=== PATIENT | female | born 1975 | race Caucasian/White ===

== ENCOUNTER 2016-09-23 08:58 | Inpatient (IN) ==
--- NOTE | 2016-09-23 12:42 | Internal Med History&Physical ---
Date of Encounter: 09/23/16 Time of Encounter: 12:41 Assessment and Plan (1) Fibula fracture Current visit: Yes Status: Acute Orthopedics have been consulted Patient is low risk for surgery Pain control DVT prophylaxis Obtain U.tox mechanism of fall is suspicious for violence and or influence by illicit substances Qualifiers: Encounter type: initial encounter Fibula location: proximal Fracture type : closed Laterality: left Qualified Code(s): S82.832A - Other fracture of upper and lower end of left fibula, initial encounter for closed fracture (2) Ulna styloid fracture, closed Current visit: Yes Status: Acute As above Qualifiers: Encounter type: initial encounter Fracture alignment: nondisplaced Laterality: right Qualified Code(s): S52.614A - Nondisplaced fracture of right ulna styloid process, initial encounter for closed fracture (3) Tibial plateau fracture, left Current visit: Yes Status: Acute As above Qualifiers: Encounter type: initial encounter Fracture type: closed Qualified Code(s) : S82.142A - Displaced bicondylar fracture of left tibia, initial encounter for closed fracture (4) Tobacco abuse Current visit: Yes Status: Acute 3 minutes spent on tobacco cessation counseling. Patient refuses to nicotine replacement therapy at this time. Internal Medicine - H&P: HPI Chief complaint: Fall Admitted From: Home Plans for Post Hospital Care: Home History of present illness: Ms. Benedict is a 40 year old female with no past medical history except for crepitus. Patient is seen and evaluated at the bedside. Patient denies illicit drug use, or alcohol abuse. Patient reports having the porch about 10 feet high without railings, and she fell from the edge of touched the flow last night at 10 PM. She denies being under the influence of drugs or alcohol at the time of the incident. She denies any formal domestic violence or abuse at home. She presented to the ER at [place], and imaging revealed a right communited / impacted ulnar styloid fracture and a left tibia and fibula fracture hence patient was transferred here for surgical intervention. She denies any have having any surgery in the past, she had laparoscopic tubal ligation without any adverse effects of anesthesia in the past. She denies family history of any anesthesia complications. She smokes 1-1/2 packs a day of cigarettes. She reports being completely functional without any shortness of breath at her baseline. She denies chest pain, leg swelling or easy fatigability. Labs done from the referral center essentially unremarkable CBC, chemistry, coagulation panel, urine analysis. Past Med Surg Social Fam HX - Past Medical History Medical history: no medical history Psychiatric history: anxiety - Social History Smoking Status: Current every day smoker Packs per day: 0.5 Smokeless Tobacco Status: No Alcohol use: none Drug use: none - Family History Mother Living Status: Still Living Hx Family Cardiac Disorders: Yes Hx Family Endocrine Disorder: Yes (DM) Father Living Status: Still Living Hx Family Endocrine Disorder: Yes (DM) Brother Hx Family Endocrine Disorder: Yes (DM) Internal Medicine - H&P: Meds No Known Home Drugs 09/23/16 [History] Allergies No Known Allergies Allergy (Verified 09/23/16 07:24) All Systems PM: A 10-system review of systems was performed and is negative for pertinent findings except as documented above in the HPI. - Constitutional Constitutional: no chills, no fever(s), no night sweats - EENT Eyes: no change in vision, no discharge, no pain, no photophobia Ears: no ear discharge, no ear pain, no tinnitus Nose, mouth and throat: no dysphagia, no nasal discharge, no neck pain, no sore throat - Cardiovascular Cardiovascular ROS IM: no chest pain, no diaphoresis, no dyspnea, no lightheadedness, no palpitations, no syncope - Respiratory Respiratory: no cough, no dyspnea, no wheezing, no excessive phlegm production - Gastrointestinal Gastrointestinal: no abdominal pain, no diarrhea, no hematemesis, no hematochezia, no melena, no nausea, no vomiting - Genitourinary Genitourinary: no change in urinary stream, no dysuria, no flank pain, no hematuria - Musculoskeletal Musculoskeletal ROS IM: as per HPI - Integumentary Integumentary IM: as per HPI - Neurological Neurological ROS: no confusion, no convulsions, no focal weakness, no numbness, no tingling, no tremor(s) - Hematologic/Lymphatic Hematologic/Lymphatic: no easy bruising - Constitutional Vitals: Temp Pulse Resp BP Pulse Ox 97.7 F 81 18 139/96 96 09/23/16 11:40 09/23/16 11:40 09/23/16 11:40 09/23/16 11:40 09/23/16 11:40 General appearance: Present: mild distress, A&O X 3, pleasant - Head Head exam: Present: atraumatic, normocephalic - Eye Eye exam: Present: PERRL, conjuntiva pink, sclera anicteric Pupils: Present: PERRL - Neck Neck exam general surgery: Present: supple, trachea midline. Absent: lymphadenopathy - Respiratory Respiratory exam: Present: CTAB. Absent: accessory muscle use, rales, rhonchi, wheezes - Cardiovascular Cardiovascular exam: Present: RRR, +S1, +S2. Absent: diastolic murmur, gallop, rubs, systolic murmur - GI/Abdominal GI/Abdominal exam: Present: normal bowel sounds, soft, no peritoneal signs. Absent: distended, tenderness - Extremities Exam Extremities exam: Present: warm, radial pulses palpable and symetrical. Absent : calf tenderness, cyanotic, pedal edema Additional comments: R arm in cast, well perfused, normal capillary refill at the finger tips Left leg in cast, good capillary refill, patient is able to wriggle her toes - Neurological Exam Neurological exam: Present: alert, CN II-XII intact, oriented X3, no focal deficits. Absent: pronater drift, facial droop, speech deficit - Skin Skin exam: Present: dry, intact
[2016-09-23] MEDS ORDERED: Naloxone 0.4 MG/ML INJ IVP PRN (12:54)
[2016-09-23] MEDS ORDERED: Acetaminophen 325 MG TABLET PO PRN (12:54)
[2016-09-23] MEDS ORDERED: Ondansetron 4 MG/2 ML VIAL IVP PRN (12:54)
[2016-09-23] MEDS: *HR* Morphine 2 MG/ML SYRINGE IVP PRN ×3 (13:27→21:51)
[2016-09-23] MEDS: 0.9 % Sodium Chloride 1,000 ML IVC SCH (13:29)
[2016-09-23] MEDS: *HR* HYDROcodone/Acet 5/325 mg TABLET PO PRN ×3 (15:27→23:52)
--- NOTE | 2016-09-23 16:24 | Orthopedic Consult Note ---
Date of Encounter: 09/23/16 Time of Encounter: 16:22 Assessment and Plan (1) Tibial plateau fracture, left Current Visit: Yes Status: Acute Discussed with the patient that the fracture is displaced extending into the joint. We will obtain a CT scan. I discussed that Dr. Bernal will perform an open reduction internal fixation of the proximal tibia and Sunday. The procedure, expected rehabilitation were discussed. The risks, benefits alternatives were discussed. Informed consent was obtained. Qualifiers: Encounter type: initial encounter Fracture type: closed Qualified Code(s) : S82.142A - Displaced bicondylar fracture of left tibia, initial encounter for closed fracture (2) Distal radius fracture, right Current Visit: Yes Status: Acute The patient also has a right distal radius intra-articular fracture that is displaced. She scheduled for an open reduction internal fixation of the distal radius tomorrow. The surgical details along with the expected rehabilitation was discussed with the patient. The risks, benefits and alternatives were discussed. Informed consent was obtained. I discussed with the patient once plates in position and we can get her into a cast she will be able to bear weight on the forearm with a platform walker. Qualifiers: Encounter type: initial encounter Fracture type: closed Fracture morphology: other intra-articular Qualified Code(s): S52.571A - Other intraarticular fracture of lower end of right radius, initial encounter for closed fracture History of Present Illness Chief complaint: Right wrist and left knee fractures HPI: Ms. Benedict is a 40 year old [id number] female status post a fall last night sustaining a right wrist distal radius intra-articular fracture and a left knee displaced tibial plateau fracture. The patient was intoxicated last night and fell off a porch it that was intimately left area with no railing. Apparently the patient passed out and woke up this morning with significant pain , she was seen at the [facility] later this morning. The patient denies any chest pain or shortness of breath. She has normal balance normally and does not drink excessively typically. Past Med Surg Social Fam HX - Past Medical History Medical history: no medical history Psychiatric history: anxiety - Social History Smoking Status: Current every day smoker Packs per day: 0.5 Smokeless Tobacco Status: No Alcohol use: none Drug use: none - Family History Mother Living Status: Still Living Hx Family Cardiac Disorders: Yes Hx Family Endocrine Disorder: Yes (DM) Father Living Status: Still Living Hx Family Endocrine Disorder: Yes (DM) Brother Hx Family Endocrine Disorder: Yes (DM) Medications and Allergies No Known Home Drugs 09/23/16 [History] Allergies No Known Allergies Allergy (Verified 09/23/16 07:24) All Systems Reviewed: A 10-system review of systems was performed and is negative for pertinent findings except as documented above in the HPI. Physical Exam - Constitutional Vitals: Temp Pulse Resp BP Pulse Ox 98.6 F 80 18 143/95 98 09/23/16 14:52 09/23/16 14:52 09/23/16 14:52 09/23/16 14:52 09/23/16 14:52 General appearance IM: mild distress, A&O X 3 Exam: Head normocephalic atraumatic Neck supple and nontender Right shoulder nontender, sugar tong splint and forearm, able to move fingers and warm to touch Left upper extremity has no swelling and no tenderness of the joint along bone, mild bruising on the posterior arm Right lower extremity has no bruising and no tenderness over the joints along bones, neurovascular intact Left lower extremity is maynor long posterior splint, she is alert move her toes are warm to touch, sensation intact Results - Labs Labs: All other labs normal. - Diagnostic results Wrist/Hand CT: image reviewed (Right distal radius intra-articular fracture, displaced) Knee x-ray: image reviewed (Left tibial plateau fracture, displaced) Consult Discharge Plan - Plan Referrals: Johny Greene MD [Primary Care Provider] -
[2016-09-23 18:21] LABS: Amphetamine Screen,Urine Positive ng/mL (Cutoff=1000); Barbiturate Screen,Urine Negative ng/mL (Cutoff=200); Benzodiazepines Screen,Urine Negative ng/mL (Cutoff=200); Cannabinoid Screen,Urine Positive ng/mL (Cutoff = 50); Cocaine Screen,Urine Negative ng/mL (Cutoff= 300); Opiate Screen,Urine Positive ng/mL (Cutoff=300); Phencyclidine Screen,Urine Negative ng/mL (Cutoff=25)
[2016-09-24] MEDS: *HR* Morphine 2 MG/ML SYRINGE IVP PRN ×4 (01:50→15:06)
[2016-09-24] MEDS: *HR* HYDROcodone/Acet 5/325 mg TABLET PO PRN ×5 (04:24→23:25)
[2016-09-24] MEDS ORDERED: *HR* Enoxaparin 40 MG/0.4 ML SYRINGE SQ SCH (06:00)
[2016-09-24 06:15] LABS: Hematocrit 39.5 % (35.3-44.9); Hemoglobin 13.3 g/dL (11.5-15.4); Immature Platelets 5.2 % (1.1-6.1); Mean Corpuscular HGB Conc 33.7 g/dL (31.6-35.5); Mean Corpuscular Hemoglobin 31.4 pg (28.0-33.3); Mean Corpuscular Volume 93.2 fL (83.0-100.0); Mean Platelet Volume 10.1 fL (9.4-12.4); Red Blood Count 4.24 M/mcL (3.82-4.97)
[2016-09-24 06:26] LABS: BUN/Creatinine Ratio 6 (6-26); Calcium 8.7 mg/dL (8.6-10.8); Carbon Dioxide 20 mEq/L (19-29); Chloride 107 mEq/L (98-109); Glucose 97 mg/dL (70-99); Osmolality,Calculated 279 (280-300); Potassium 3.4 mEq/L (3.5-4.5); Sodium 136 mEq/L (136-145); eGFR For African Americans > 60 (> 60); eGFR For Non-African Americans > 60 (> 60)
[2016-09-24 06:30] LABS: Blood Urea Nitrogen 4 mg/dL (7-20)
[2016-09-24] MEDS ORDERED: amLODIPine 5 MG TABLET PO SCH (09:00)
--- NOTE | 2016-09-24 09:55 | Internal Med Progress Note ---
Date of Encounter: 09/24/16 Time of Encounter: 09:10 - Assessment and plan (1) Fibula fracture Current Visit: Yes Status: Acute Assessment and plan: Continue pain control For surgery a.m DVT prophylaxis Qualifiers: Encounter type: initial encounter Fibula location: proximal Fracture type : closed Laterality: left Qualified Code(s): S82.832A - Other fracture of upper and lower end of left fibula, initial encounter for closed fracture (2) Ulna styloid fracture, closed Current Visit: Yes Status: Acute Assessment and plan: Continue pain control For surgery today Qualifiers: Encounter type: initial encounter Fracture alignment: nondisplaced Laterality: right Qualified Code(s): S52.614A - Nondisplaced fracture of right ulna styloid process, initial encounter for closed fracture (3) Tibial plateau fracture, left Current Visit: Yes Status: Inactive Qualifiers: Encounter type: initial encounter Fracture type: closed Qualified Code(s) : S82.142A - Displaced bicondylar fracture of left tibia, initial encounter for closed fracture (4) Tobacco abuse Current Visit: Yes Status: Acute Assessment and plan: Declines NRT, counselled on cessation (5) HTN (hypertension) Current Visit: Yes Status: Suspected Assessment and plan: suspected Low dose norvasc started, titrate prn Qualifiers: Hypertension type: essential hypertension Qualified Code(s): I10 - Essential (primary) hypertension - Subjective Interval history: Seen and evaluated No new complains Receiving IV morphine roundd the clock for severe pain Shes for ulnar styloid fracture this morning Noted elevated BP, patient denies hx of same - Constitutional Vitals: Temp Pulse Resp BP Pulse Ox 98.2 F 87 18 154/78 98 09/24/16 06:44 09/24/16 06:44 09/24/16 06:44 09/24/16 06:44 09/24/16 06:44 General appearance: Present: A&O X 3, pleasant, no acute distress - Head Head exam: Present: atraumatic, normocephalic - Eye Eye exam: Present: PERRL, conjuntiva pink, sclera anicteric Pupils: Present: PERRL - Neck Neck exam general surgery: Present: supple, trachea midline. Absent: lymphadenopathy - Respiratory Respiratory exam: Present: CTAB. Absent: accessory muscle use, rales, rhonchi, wheezes - Cardiovascular Cardiovascular exam: Present: RRR, +S1, +S2. Absent: diastolic murmur, gallop, rubs, systolic murmur - GI/Abdominal GI/Abdominal exam: Present: normal bowel sounds, soft, no peritoneal signs. Absent: distended, tenderness - Extremities Exam Extremities exam: Present: warm, radial pulses palpable and symetrical. Absent : calf tenderness, cyanotic, pedal edema Additional comments: R arm and L leg in cast, neurovascularly intact - Neurological Exam Neurological exam: Present: alert, CN II-XII intact, oriented X3, no focal deficits. Absent: pronater drift, facial droop, speech deficit - Skin Skin exam: Present: dry, intact Internal Medicine: Result - Labs CBC & Chem 7: 09/24/16 06:07 09/24/16 06:07 Labs: Short CBC 09/24/16 Range/Units 06:07 WBC 10.6 (4.3-11.1) K/mcL Hgb 13.3 (11.5-15.4) g/dL Hct 39.5 (35.3-44.9) % Plt Count 260 (140-400) K/mcL BMP 09/24/16 06:07 Sodium 136 Potassium 3.4 L Chloride 107 Carbon Dioxide 20 BUN 4 L Creatinine 0.69 Glucose 97 Calcium 8.7 - Impressions Impressions Knee CT 09/23/16 15:23 IMPRESSION: 1. Acute comminuted fracture of the medial and lateral tibial plateau. 4 mm depression in the anterior aspect of the medial tibial plateau. 2. Large lipohemarthrosis. D/ / Panchito Bernal MD / Panchito Bernal MD Interpreting Provider: Panchito Bernal MD - VTE Documentation of Mechanical Device: Venous foot pump, device Consult Discharge Plan - Plan Referrals: Johny Greene MD [Primary Care Provider] -
[2016-09-24] MEDS: 0.9 % Sodium Chloride 1,000 ML IVC SCH ×2 (16:29→22:25)
--- NOTE | 2016-09-24 17:12 | Anesthesia Evaluation PreOp ---
Date of Encounter: 09/24/16 Time of Encounter: 18:54 - Past History Planned Operation: ORIF R wrist Cardiac History: HTN (started on norvasc this hospitalization) Pulmonary History: Smoker MANAGER PRINTING History: Denies Any Significant HX Other Medical History: Denies Any Significant HX Anesthesia History: No Prior Anesthetic Complications, Past Anesthesia (tubal ligation) Alcohol Use: none Drug use: none Medications and Allergies No Known Home Drugs 09/23/16 [History] Allergies No Known Allergies Allergy (Verified 09/23/16 07:24) - Meds/Allergy Pre-op Review Medications Reviewed: Yes Allergies Reviewed: Yes Beta Blockers on Current Med List: No Anesthesia Results - Labs 09/24/16 06:07 09/24/16 06:07 Anesthesia Exam Last Vital Signs Temp 98.3 F 09/24/16 10:53 Pulse 94 09/24/16 10:53 Resp 16 09/24/16 10:53 BP 148/76 09/24/16 10:53 Pulse Ox 98 09/24/16 10:53 Weight: 70 kg NPO (# of Hours): >> 8 hrs - HEENT Pupil (Motor): Pupils equal, EOMI Mallampati: II Teeth: Edentulous Denture Type: Upper: Complete, Lower: Complete - MANAGER PRINTING LOC: Oriented MANAGER [employer]ING Motor: Normal RUE, Normal LUE, Normal RLE, Normal LLE, Normal Face - Cardiac Rhythm: Regular Murmur: None - Pulmonary Breath Sounds: bilateral Clear Respiratory Effort: Symmetrical Anesthesia Assess/Plan ASA Score: 2 Modified Gerson Scale for Level of Consciousness: Cooperative, oriented, and tranquil Anesthetic Plan: General Monitoring Plan: Standard Monitors Recovery Plan: PACU
[2016-09-24] MEDS ORDERED: *HR* FentaNYL (PF) 100 MCG/2 ML VIAL ONE (17:48)
[2016-09-24] MEDS ORDERED: *HR* Midazolam HCl 2 MG/2 ML VIAL ONE (17:48)
[2016-09-24] MEDS ORDERED: Lidocaine -MPF 2% 2 ML VIAL ONE (17:48)
[2016-09-24] MEDS ORDERED: *HR* Propofol 200 MG/20 ML VIAL IVP ONE (17:48)
[2016-09-24] MEDS ORDERED: *HR* Succinylcholine 200 MG/10 ML VIAL IVP ONE (17:51)
[2016-09-24] MEDS ORDERED: Acetaminophen IV 1,000 MG/100 ML INFUS..BTL ONE (19:20)
[2016-09-24] MEDS ORDERED: Famotidine 20 MG/2 ML VIAL ONE (19:20)
[2016-09-24] MEDS ORDERED: *HR* HYDROmorphone 2 MG/ML SYRINGE ONE (19:53)
[2016-09-24] MEDS ORDERED: Dexamethasone 4 MG/ML VIAL ONE (20:27)
[2016-09-24] MEDS ORDERED: Ondansetron 4 MG/2 ML VIAL ONE (20:27)
[2016-09-24] MEDS ORDERED: *HR* Labetalol 100 MG/20 ML MDV IVP PRN (21:42)
[2016-09-24] MEDS ORDERED: *HR* Promethazine 25 MG/ML VIAL IVP PRN (21:42)
[2016-09-24] MEDS ORDERED: *HR* HYDROmorphone (PF) 1 MG/ML SYRINGE IVP PRN (21:42)
--- NOTE | 2016-09-24 22:03 | Operative Note ---
Date of procedure: 09/24/16 Pre-op diagnosis: Right distal radius intra-articular fracture, 3+ fragments Post-op diagnosis: same Procedure: Right wrist open reduction internal fixation of distal radius Implants: Doroteo Variax Complications: None Anesthesia: GETA Surgeon: Dalton Morales Estimated blood loss (cc): 3 Tourniquet Time (Minutes): 68 Specimen: none Condition: stable Disposition: PACU Procedure in Detail: The patient received IV antibiotics in the holding area and also underwent an axillary block by the anesthesia department. The patient was brought into the operating room and placed on the OR table in supine position with the affected upper extremity in a hand table. The patient underwent general anesthesia. A tourniquet was placed on the arm close axilla and the upper extremity was then prepped and draped in usual sterile fashion. A timeout was performed. The extremity was then elevated, exsanguinated with an Kwesi wrap and the tourniquet was raised to a pressure of 250 mmHg. A 6 cm longitudinal incision was made over the volar radial aspect of the wrist , directly over the FCR tendon ending at the distal wrist flexion crease. The FCR sheath was split down the midline, the tendon was retracted over medially and the base of the sheath was also split the midline. The deep fascia and the FPL muscle/tendon was also retraction medially exposing the pronator quadratus. This was then elevated off in an L-shaped manner subperiosteally, exposing the fracture site. The distal fracture fragments were mobilized as a unit, and reduced with the use of a freer elevator, and provisionally pinned in place using a 0.062 K wire driven down from the tip of the radial styloid into the proximal shaft. A lamina larry car operator was also used to restore the alignment of the radial shaft. Next a 4 hole right sided medium plate was applied to the volar surface and secured with a bone screw through the slotted hole. Once we had appropriate position plate, it was further secured with a locking screw in hole #4 in the metaphyseal bone. The distal fragment was held against the plate restoring the volar tilt, and a locking screw was placed in a distal central hole maintaining the alignment. The remaining screw holes were then filled with locking screws in standard technique using variable angle as necessary.. We checked screw position with live fluoroscopy. The remaining holes in the shaft of the plate were then filled with locking screws in standard technique. The K wire was removed. Final fluoroscopy shots were taken and saved; checking in AP, lateral, facet views, and a 45 degree supination view making sure the screws were not within the joint. Once satisfactory, the wound was irrigated with normal saline and the pronator quadratus was tacked back down in place with 3-0 Vicryl [id number] sutures. The tourniquet was deflated, once again irrigating the wound and obtaining hemostasis with the bipolar electrocautery. The skin incision was closed with 5-0 nylon mattress and simple sutures. Sterile dressings were applied and the patient placed into a sugar tong splint. Patient was extubated and taken to the recovery room in stable condition. The patient will be seen at postoperative week #1 for dressing changes and placed into a [place] cast.
[2016-09-24] MEDS ORDERED: Naloxone 0.4 MG/ML INJ IVP PRN (22:10)
[2016-09-24] MEDS ORDERED: Acetaminophen 325 MG TABLET PO PRN (22:10)
[2016-09-24] MEDS ORDERED: Ondansetron 4 MG/2 ML VIAL IVP PRN (22:10)
--- NOTE | 2016-09-24 23:42 | Anesthesia Evaluation Post Op ---
Date of Encounter: 09/24/16 Time of Encounter: 22:00 - Vital Signs Vital Signs: Vital Signs/O2 Sat/Glucose, Most Current Temp Pulse Resp BP Pulse Ox 09/24/16 21:56 98.7 F 91 16 129/92 99 09/24/16 21:46 79 16 131/91 96 09/24/16 21:36 83 16 143/106 98 09/24/16 21:26 97.1 F L 97 16 151/92 100 - Lungs Lungs: Clear Ascult./Percussion - Airway Airway: Non-obstructed - Cardiovascular Regular Rate - Mental Status Mental Status: Alert & Oriented, Answers Appropriately - Pain Pain Scale: 0 Pain Scale used: Numeric (1 - 10) - Nausea Vomiting Nausea Vomiting: Not Present - Hydration Hydration: Able to void - Discharge PostOp Status: Transfer Patient to floor Anes Supervising Prov Stmt: Pt seen/evaluated, R&B discussed, questions answered and consent obtained.Nicole Lovett MD
[2016-09-25] MEDS: *HR* Morphine 2 MG/ML SYRINGE IVP PRN ×5 (00:43→16:36)
[2016-09-25] MEDS: ceFAZolin 2,000 MG in D5% in Water 100 ML IVPB SCH ×3 (03:30→23:38)
[2016-09-25] MEDS: *HR* HYDROcodone/Acet 5/325 mg TABLET PO PRN ×3 (03:30→11:39)
--- NOTE | 2016-09-25 06:44 | Orthopedics Progress Note ---
Date of Encounter: 09/25/16 Time of Encounter: 06:42 Subjective Interval history: Patient status post fall off a porch with right wrist fracture left proximal tibia fracture. Patient underwent open reduction internal fixation of right wrist last night. Patient with a significantly comminuted displaced fracture of the left tibial plateau. Physical exam Alert and oriented 3 left lower extremity In splint slightly flexed Neurovascularly intact X-rays reviewed show severely comminuted displaced fracture proximal tibia medial and lateral plateau Recommendation open reduction internal fixation, risks and benefits of surgery were discussed as well as severity of injury significant probability that posterior back arthritis will be a source of discomfort in the future requiring additional surgery. Goal of the surgery to try and restore normal anatomy but at the same time preserve bone. Objective Vital signs: Vital Signs Temp Pulse Resp BP Pulse Ox 09/25/16 04:30 97.9 F 91 14 125/71 95 09/25/16 01:15 98.4 F 91 14 116/79 94 09/25/16 00:15 97.5 F L 94 14 136/80 95 09/24/16 23:15 97.4 F L 72 14 125/85 92 09/24/16 22:45 97.6 F 90 16 141/90 93 09/24/16 22:37 97.7 F 91 16 133/90 93 09/24/16 21:56 98.7 F 91 16 129/92 99 09/24/16 21:46 79 16 131/91 96 09/24/16 21:36 83 16 143/106 98 09/24/16 21:26 97.1 F L 97 16 151/92 100 09/24/16 10:53 98.3 F 94 16 148/76 98 09/24/16 06:44 98.2 F 87 18 154/78 98 Intake and Output 09/24/16 09/24/16 09/25/16 15:59 23:59 07:59 Intake Total 1000 / 1000 100 / 100 Output Total 700 / 700 328 / 328 1400 / 1400 Balance -700 / -700 672 / 672 -1300 / -1300 Intake: IV Fluids 1000 / 1000 100 / 100 0.9 % Sodium Chloride 1, 1000 / 1000 000 ML @ 50 mls/hr IVC . Q20H [facility] Rx#:[id number] Ancef 2,000 MG In 100 / 100 Dextrose 5% 100 ML @ 200 mls/hr IVPB Q8H [facility] Rx#: [id number] Output: Urine 700 / 700 325 / 325 1400 / 1400 Estimated Blood Loss 3 / 3 - Labs CBC & BMP: 09/24/16 06:07 09/24/16 06:07 Labs: Abnormal lab results RDW 15.0 % (11.5-14.5) H 09/24/16 06:07 Potassium 3.4 mEq/L (3.5-4.5) L 09/24/16 06:07 BUN 4 mg/dL (7-20) L 09/24/16 06:07 Calculated Osmolality 279 (280-300) L 09/24/16 06:07 Urine Opiates Screen Positive ng/mL (Kyczdh=393) H 09/23/16 17:40 Ur Amphetamines Screen Positive ng/mL (Lsbfoq=9457) H 09/23/16 17:40 U Marijuana (THC) Screen Positive ng/mL (Cutoff = 50) H 09/23/16 17:40 - VTE Documentation of Mechanical Device: Venous foot pump, device Consult Discharge Plan - Plan Referrals: Johny Greene MD [Primary Care Provider] -
[2016-09-25] MEDS ORDERED: amLODIPine 5 MG TABLET PO SCH (09:00)
--- NOTE | 2016-09-25 09:40 | Internal Med Progress Note ---
Date of Encounter: 09/25/16 Time of Encounter: 09:38 - Assessment and plan (1) Fibula fracture Current Visit: Yes Status: Acute Assessment and plan: Continue pain control For surgery today DVT prophylaxis Qualifiers: Encounter type: initial encounter Fibula location: proximal Fracture type : closed Laterality: left Qualified Code(s): S82.832A - Other fracture of upper and lower end of left fibula, initial encounter for closed fracture (2) Ulna styloid fracture, closed Current Visit: Yes Status: Acute Assessment and plan: Continue pain control POD 1 Mgt per ortho Qualifiers: Encounter type: initial encounter Fracture alignment: nondisplaced Laterality: right Qualified Code(s): S52.614A - Nondisplaced fracture of right ulna styloid process, initial encounter for closed fracture (3) Tibial plateau fracture, left Current Visit: Yes Status: Acute Assessment and plan: Management per ortho For surgery today Qualifiers: Encounter type: initial encounter Fracture type: closed Qualified Code(s) : S82.142A - Displaced bicondylar fracture of left tibia, initial encounter for closed fracture (4) Tobacco abuse Current Visit: Yes Status: Acute Assessment and plan: Declines NRT, counselled on cessation (5) HTN (hypertension) Current Visit: Yes Status: Suspected Assessment and plan: suspected Continue Norvasc 2.5mg daily, titrate prn Qualifiers: Hypertension type: essential hypertension Qualified Code(s): I10 - Essential (primary) hypertension - Subjective Interval history: Seen and evaluated No new complains Receiving IV morphine round the clock for severe pain, and norco and PCM POD1 R ulnar styloid ORIF For Left tibial plateau fracture repair today - Constitutional Vitals: Temp Pulse Resp BP Pulse Ox 98.3 F 113 22 163/99 97 09/25/16 06:56 09/25/16 06:56 09/25/16 06:56 09/25/16 06:56 09/25/16 06:56 General appearance: Present: A&O X 3, pleasant, no acute distress - Head Head exam: Present: atraumatic, normocephalic - Eye Eye exam: Present: PERRL, conjuntiva pink, sclera anicteric Pupils: Present: PERRL - Neck Neck exam general surgery: Present: supple, trachea midline. Absent: lymphadenopathy - Respiratory Respiratory exam: Present: CTAB. Absent: accessory muscle use, rales, rhonchi, wheezes - Cardiovascular Cardiovascular exam: Present: RRR, +S1, +S2. Absent: diastolic murmur, gallop, rubs, systolic murmur - GI/Abdominal GI/Abdominal exam: Present: normal bowel sounds, soft, no peritoneal signs. Absent: distended, tenderness - Extremities Exam Extremities exam: Present: warm, radial pulses palpable and symetrical. Absent : calf tenderness, cyanotic, pedal edema Additional comments: R hand arm in cast, neurovcularly intact, L leg in cast, neurovascularly intact - Neurological Exam Neurological exam: Present: alert, CN II-XII intact, oriented X3, no focal deficits. Absent: pronater drift, facial droop, speech deficit - Skin Skin exam: Present: dry, intact Internal Medicine: Result - Labs CBC & Chem 7: 09/24/16 06:07 09/24/16 06:07 - Impressions Impressions Fluoroscopy 09/24/16 17:58 IMPRESSION: Intraprocedural fluoroscopic spot images as above. See separate procedure report for more information. D/ / Hai Edge MD / Hai dEge MD Interpreting Provider: Hai Edge MD Wrist X-Ray 09/24/16 17:58 IMPRESSION: Intraprocedural fluoroscopic spot images as above. See separate procedure report for more information. D/ / Hai Edge MD / Hai Edge MD Interpreting Provider: Hai Edge MD - VTE Documentation of Mechanical Device: Venous foot pump, device Consult Discharge Plan - Plan Referrals: Johny Greene MD [Primary Care Provider] -
--- NOTE | 2016-09-25 11:06 | Anesthesia Evaluation PreOp ---
Date of Encounter: 09/25/16 Time of Encounter: 11:04 - Past History Planned Operation: L prox tibia orif Cardiac History: HTN Pulmonary History: Smoker SKY DIVER History: Denies Any Significant HX Other Medical History: Denies Any Significant HX Anesthesia History: No Prior Anesthetic Complications, Past Anesthesia (btl, orif r wrist) Alcohol Use: none Drug use: none Medications and Allergies No Known Home Drugs 09/23/16 [History] Allergies No Known Allergies Allergy (Verified 09/23/16 07:24) - Meds/Allergy Pre-op Review Medications Reviewed: Yes Allergies Reviewed: Yes Beta Blockers on Current Med List: No Anesthesia Results - Labs 09/24/16 06:07 09/24/16 06:07 Anesthesia Exam Height: 1.55 Weight: 70 NPO (# of Hours): >8 - HEENT Pupil (Motor): Pupils equal, EOMI Mallampati: II Denture Type: Upper: Complete, Lower: Complete Oral Opening: Greater than 3 - SKY DIVER LOC: Oriented SKY DIVER Motor: Normal RUE, Normal LUE, Normal RLE, Normal LLE, Normal Face SKY DIVER Sensory: Normal: RUE, LUE, RLE, LLE, Face - Cardiac Rhythm: Regular Murmur: None - Pulmonary Breath Sounds: bilateral Clear Respiratory Effort: Symmetrical Anesthesia Assess/Plan ASA Score: 2 Modified Grinnell Scale for Level of Consciousness: Cooperative, oriented, and tranquil Anesthetic Plan: General Monitoring Plan: Standard Monitors Recovery Plan: PACU
[2016-09-25] MEDS ORDERED: Ringers Solution, Lactated 1,000 ML IVC SCH (11:15)
[2016-09-25] MEDS ORDERED: Lidocaine -MPF 2% 2 ML VIAL ONE (17:49)
[2016-09-25] MEDS ORDERED: Ondansetron 4 MG/2 ML VIAL ONE (17:49)
[2016-09-25] MEDS ORDERED: *HR* Propofol 200 MG/20 ML VIAL IVP ONE (17:49)
[2016-09-25] MEDS ORDERED: *HR* FentaNYL (PF) 100 MCG/2 ML VIAL ONE (17:49)
[2016-09-25] MEDS ORDERED: *HR* Midazolam HCl 2 MG/2 ML VIAL ONE (17:49)
[2016-09-25] MEDS ORDERED: *HR* Succinylcholine 200 MG/10 ML VIAL IVP ONE (17:49)
[2016-09-25] MEDS ORDERED: *HR* HYDROmorphone 2 MG/ML SYRINGE ONE (18:22)
[2016-09-25] MEDS ORDERED: Ondansetron 4 MG/2 ML VIAL IVP PRN ×2 (18:45→20:51)
[2016-09-25] MEDS ORDERED: *HR* Promethazine 25 MG/ML VIAL IVP PRN (18:45)
--- NOTE | 2016-09-25 19:01 | Orthopedic Operative Note ---
Date of procedure: 09/25/16 Pre-op diagnosis: Displaced comminuted fracture left bicondylar tibial plateau Post-op diagnosis: same Procedure: Procedure: Open reduction internal fixation left tibial plateau bicondylar Estimated blood loss: 200 mL Hardware Synthes 4-hole periarticular left lateral plate 4 5.0 cannulated locking screws 1 5.0 locking screw Procedure: Patient brought to the operating placed on the operating table. After general anesthesia was administered the well leg was placed in the well leg garcia the operative leg was placed in the legholder. The operative leg was prepped and draped in sterile surgical fashion, patient received IV antibiotics prior to skin incision. Utilizing fluoroscopic assistance the fracture was identified. A curved incision was made over the anterolateral aspect of the proximal tibia. Incision made through skin and subcutaneous tissue hemostasis was obtained with Bovie cautery. The fascia was incised along the anterolateral compartment. The muscle was elevated up bluntly off the lateral tibia. The fracture site was exposed. Utilizing fluoroscopic assistance the depressed fragment was identified and elevated with a bone tamp. Position of the fragment in the AP and lateral planes was found to be acceptable with fluoroscopic assistance. A Synthes 4- hole particular 4.5 plate was approximated to the anterolateral surface. It was fixed distally in compression with a 4.5 cortical screw proximally with 3 5.0 cannulated locking screws over guide pins. The position of the hardware as well as fracture reduction found acceptable in the AP and lateral planes. A fourth kickstand 5.0 cannulated screws placed under fluoroscopic assistance. the 4.5 compression screw was switched out for a 5.0 locking screw. Wound was irrigated fascia was closed with a running #1 PDS suture subcutaneous case tissue to close 0 PDS suture skin was closed with skin kayleigh sterile dressing postoperative brace extubated transferred to recovery in stable condition. Anesthesia: GETA Surgeon: Tushar Bernal Clinical Registered Nurse: Danette Hunter Condition: stable Disposition: PACU
[2016-09-25] MEDS: *HR* HYDROmorphone (PF) 1 MG/ML SYRINGE IVP PRN ×7 (19:23→23:37)
[2016-09-25] MEDS ORDERED: Gabapentin 300 MG CAPSULE PO STA (19:49)
[2016-09-25] MEDS ORDERED: *HR* Labetalol 20 MG/4 ML SYRINGE IVP PRN (19:50)
[2016-09-25] MEDS ORDERED: cloNIDine HCl 0.1 MG TABLET PO ONE (19:51)
[2016-09-25] MEDS ORDERED: *HR* HYDROmorphone (PF) 1 MG/ML SYRINGE ONE (19:55)
[2016-09-25] MEDS ORDERED: Dexamethasone 4 MG/ML VIAL IVP PRN (20:10)
[2016-09-25] MEDS ORDERED: Ketorolac 30 MG/ML VIAL IVP ONE (20:10)
[2016-09-25 20:19] LABS: Hematocrit 37.6 % (35.3-44.9); Hemoglobin 12.1 g/dL (11.5-15.4)
[2016-09-25] MEDS ORDERED: Temazepam 15 MG CAPSULE PO PRN (20:51)
[2016-09-25] MEDS ORDERED: Sennosides 8.6 MG TABLET PO PRN (20:51)
[2016-09-25] MEDS ORDERED: Naloxone 0.4 MG/ML INJ IVP PRN ×2 (20:51)
[2016-09-25] MEDS ORDERED: MOM Conc 10 ML UD.LIQ PO PRN (20:51)
--- NOTE | 2016-09-25 20:55 | Anesthesia Evaluation Post Op ---
Date of Encounter: 09/25/16 Time of Encounter: 20:35 - Vital Signs Vital Signs: Vital Signs/O2 Sat/Glucose, Most Current Temp Pulse Resp BP Pulse Ox 09/25/16 20:34 98.6 F 80 18 147/92 98 09/25/16 20:24 80 18 154/98 99 09/25/16 20:14 98.6 F 86 20 159/90 99 09/25/16 20:04 83 20 145/96 92 09/25/16 19:54 91 21 189/108 100 09/25/16 19:44 97.9 F 108 24 191/100 98 09/25/16 19:34 125 24 165/111 96 09/25/16 19:24 113 18 168/107 93 09/25/16 19:14 98 F 122 18 151/86 97 - Lungs Lungs: Clear Ascult./Percussion - Airway Airway: Non-obstructed - Cardiovascular Regular Rate - Mental Status Mental Status: Alert & Oriented, Answers Appropriately - Pain Pain Scale: 3 Pain Scale used: Numeric (1 - 10) - Nausea Vomiting Nausea Vomiting: Not Present - Hydration Hydration: Able to void - Discharge PostOp Status: Transfer Patient to floor Anes Supervising Prov Stmt: Pt seen/evaluated, VSS and pt has met criteria for discharge to floor. - MD Rachell
[2016-09-25] MEDS: *HR* OxyCODONE Immed Rel 5 MG TABLET PO PRN (21:34)
[2016-09-25] MEDS: Acetaminophen 325 MG TABLET PO PRN (23:38)
[2016-09-26] MEDS: *HR* HYDROmorphone (PF) 1 MG/ML SYRINGE IVP PRN ×6 (02:05→15:16)
[2016-09-26 05:39] LABS: Hematocrit 35.1 % (35.3-44.9); Hemoglobin 11.3 g/dL (11.5-15.4)
[2016-09-26 06:00] LABS: BUN/Creatinine Ratio 6 (6-26); Calcium 8.9 mg/dL (8.6-10.8); Carbon Dioxide 23 mEq/L (19-29); Chloride 106 mEq/L (98-109); Glucose 125 mg/dL (70-99); Osmolality,Calculated 282 (280-300); Potassium 3.8 mEq/L (3.5-4.5); Sodium 137 mEq/L (136-145); eGFR For African Americans > 60 (> 60); eGFR For Non-African Americans > 60 (> 60)
[2016-09-26 06:01] LABS: Blood Urea Nitrogen 4 mg/dL (7-20)
--- NOTE | 2016-09-26 06:19 | Orthopedics Progress Note ---
Date of Encounter: 09/26/16 Time of Encounter: 06:18 Subjective Interval history: Patient was seen this morning doing well without complaints. Afebrile vital signs stable. Operative extremity: Neurovascularly intact Dressing clean dry and intact Calves nontender Assessment and plan: Continue with postoperative care Hematocrit 35 stable for discharge Objective Vital signs: Vital Signs Temp Pulse Resp BP Pulse Ox 09/26/16 04:35 98.1 F 92 18 133/83 96 09/26/16 00:33 98.9 F 81 15 127/84 97 09/25/16 23:23 98.8 F 105 16 133/86 96 09/25/16 22:11 97.7 F 77 16 122/81 98 09/25/16 21:27 97.7 F 92 16 141/59 98 09/25/16 20:45 97.9 F 105 16 130/67 96 09/25/16 20:34 98.6 F 80 18 147/92 98 09/25/16 20:24 80 18 154/98 99 09/25/16 20:14 98.6 F 86 20 159/90 99 09/25/16 20:04 83 20 145/96 92 09/25/16 19:54 91 21 189/108 100 09/25/16 19:44 97.9 F 108 24 191/100 98 09/25/16 19:34 125 24 165/111 96 09/25/16 19:24 113 18 168/107 93 09/25/16 19:14 98 F 122 18 151/86 97 09/25/16 15:47 98.0 F 90 20 143/95 96 09/25/16 11:39 98.2 F 95 22 158/93 95 09/25/16 06:56 98.3 F 113 22 163/99 97 Intake and Output 09/25/16 09/25/16 09/26/16 15:59 23:59 07:59 Intake Total 100 / 100 Output Total 400 / 400 1200 / 1200 800 / 800 Balance -400 / -400 -1200 / -1200 -700 / -700 Intake: IV Fluids 100 / 100 Ancef 2,000 MG In 100 / 100 Dextrose 5% 100 ML @ 200 mls/hr IVPB Q8HR [facility] Rx#: [id number] Output: Urine 400 / 400 1000 / 1000 800 / 800 Estimated Blood Loss 200 / 200 Other: Meal npo Percent of Meal Consumed 0% # Voids 1 1 - Labs CBC & BMP: 09/26/16 04:49 09/26/16 04:49 Labs: Abnormal lab results Hgb 11.3 g/dL (11.5-15.4) L 09/26/16 04:49 Hct 35.1 % (35.3-44.9) L 09/26/16 04:49 RDW 15.0 % (11.5-14.5) H 09/24/16 06:07 BUN 4 mg/dL (7-20) L 09/26/16 04:49 Glucose 125 mg/dL (70-99) H 09/26/16 04:49 Urine Opiates Screen Positive ng/mL (Sepsok=578) H 09/23/16 17:40 Ur Amphetamines Screen Positive ng/mL (Kjfngw=2555) H 09/23/16 17:40 U Marijuana (THC) Screen Positive ng/mL (Cutoff = 50) H 09/23/16 17:40 - VTE Documentation of Mechanical Device: Venous foot pump, device Consult Discharge Plan - Plan Referrals: Johny Greene MD [Primary Care Provider] -
[2016-09-26] MEDS: Ringers Solution, Lactated 1,000 ML IVC SCH ×3 (07:50→20:53)
[2016-09-26] MEDS: ceFAZolin 2,000 MG in D5% in Water 100 ML IVPB SCH (07:52)
[2016-09-26] MEDS: amLODIPine 5 MG TABLET PO SCH (07:52)
[2016-09-26] MEDS: *HR* OxyCODONE Immed Rel 5 MG TABLET PO PRN ×4 (07:53→20:13)
[2016-09-26] MEDS: Acetaminophen 325 MG TABLET PO PRN (11:09)
--- NOTE | 2016-09-26 15:56 | Internal Med Progress Note ---
Date of Encounter: 09/26/16 Time of Encounter: 15:54 - Assessment and plan (1) Tibial plateau fracture, left Current Visit: Yes Status: Acute Assessment and plan: Management per ortho stable post op. control pain bedside PT/OT Qualifiers: Encounter type: initial encounter Fracture type: closed Qualified Code(s) : S82.142A - Displaced bicondylar fracture of left tibia, initial encounter for closed fracture (2) Fibula fracture Current Visit: Yes Status: Acute Assessment and plan: Continue pain control POD#1 DVT prophylaxis Qualifiers: Encounter type: initial encounter Fibula location: proximal Fracture type : closed Laterality: left Qualified Code(s): S82.832A - Other fracture of upper and lower end of left fibula, initial encounter for closed fracture (3) Ulna styloid fracture, closed Current Visit: Yes Status: Acute Assessment and plan: Continue pain control POD 2 Mgt per ortho Qualifiers: Encounter type: initial encounter Fracture alignment: nondisplaced Laterality: right Qualified Code(s): S52.614A - Nondisplaced fracture of right ulna styloid process, initial encounter for closed fracture (4) HTN (hypertension) Current Visit: Yes Status: Suspected Assessment and plan: BP controlled Continue Norvasc 2.5mg daily, titrate prn Qualifiers: Hypertension type: essential hypertension Qualified Code(s): I10 - Essential (primary) hypertension - Subjective Interval history: s/p R ulnar styloid ORIF and left tibial plateau fracture repair. getting IV dilaudid for severe pain, denies any other complains rehab recommends HH for dc needs. post op care being managed by ortho - Constitutional Vitals: Temp Pulse Resp BP Pulse Ox 97.8 F 104 16 139/86 98 09/26/16 12:10 09/26/16 12:10 09/26/16 12:10 09/26/16 12:10 09/26/16 12:10 General appearance: Present: A&O X 3, pleasant, no acute distress Internal Medicine: Result - Labs CBC & Chem 7: 09/26/16 04:49 09/26/16 04:49 Labs: Short CBC 09/25/16 09/26/16 Range/Units 19:35 04:49 Hgb 12.1 11.3 L (11.5-15.4) g/dL Hct 37.6 35.1 L (35.3-44.9) % BMP 09/26/16 04:49 Sodium 137 Potassium 3.8 Chloride 106 Carbon Dioxide 23 BUN 4 L Creatinine 0.62 Glucose 125 H Calcium 8.9 - Impressions Impressions Knee X-Ray 09/25/16 17:53 IMPRESSION: Immediate postoperative changes compatible with ORIF of proximal tibia. No evidence for acute complication is seen. D/ / 09/25/2016 19:56:28 Lupillo Cavanaugh MD / tristin Interpreting Provider: Lupillo Cavanaugh MD Fluoroscopy 09/25/16 18:22 IMPRESSION: Intraprocedural fluoroscopic spot images as above. See separate procedure report for more information. D/ / Jason Wood MD / Jason Wood MD Interpreting Provider: Jason Wood MD - VTE Documentation of Mechanical Device: Venous foot pump, device Consult Discharge Plan - Plan Referrals: Johny Greene MD [Primary Care Provider] -
[2016-09-26] MEDS: *HR* HYDROmorphone 2 MG/ML SYRINGE IVP PRN ×2 (19:12→22:50)
[2016-09-26] MEDS: 0.9 % Sodium Chloride 1,000 ML IVC SCH ×3 (19:56→19:59)
[2016-09-27] MEDS: *HR* OxyCODONE Immed Rel 5 MG TABLET PO PRN ×5 (00:29→20:08)
[2016-09-27] MEDS: Ringers Solution, Lactated 1,000 ML IVC SCH (00:34)
[2016-09-27] MEDS: *HR* HYDROmorphone 2 MG/ML SYRINGE IVP PRN ×5 (03:01→23:43)
[2016-09-27 06:19] LABS: Hematocrit 35.1 % (35.3-44.9); Hemoglobin 11.4 g/dL (11.5-15.4)
[2016-09-27 06:59] LABS: BUN/Creatinine Ratio 6 (6-26); Calcium 9.4 mg/dL (8.6-10.8); Carbon Dioxide 28 mEq/L (19-29); Chloride 105 mEq/L (98-109); Glucose 95 mg/dL (70-99); Osmolality,Calculated 291 (280-300); Sodium 142 mEq/L (136-145); eGFR For African Americans > 60 (> 60); eGFR For Non-African Americans > 60 (> 60)
[2016-09-27 07:02] LABS: Blood Urea Nitrogen 4 mg/dL (7-20)
[2016-09-27] MEDS: amLODIPine 5 MG TABLET PO SCH (08:13)
--- NOTE | 2016-09-27 08:55 | Orthopedics Progress Note ---
Date of Encounter: 09/27/16 Time of Encounter: 08:55 Subjective Interval history: Patient was seen this morning doing well without complaints. Afebrile vital signs stable. Operative extremity: Neurovascularly intact Dressing clean dry and intact Calves nontender Assessment and plan: Continue with postoperative care stable for discharge Objective Vital signs: Vital Signs Temp Pulse Resp BP Pulse Ox 09/27/16 06:51 98.5 F 97 16 138/79 96 09/26/16 23:51 98.3 F 101 17 133/83 95 09/26/16 20:19 97.5 F L 107 18 153/90 96 09/26/16 17:11 97.8 F 72 17 114/65 95 09/26/16 12:10 97.8 F 104 16 139/86 98 09/26/16 09:29 97.9 F 79 17 136/107 97 Intake and Output 09/26/16 09/27/16 09/27/16 23:59 07:59 15:59 Other: # Voids 1 3 - Labs CBC & BMP: 09/27/16 05:38 09/27/16 05:38 Labs: Abnormal lab results Hgb 11.4 g/dL (11.5-15.4) L 09/27/16 05:38 Hct 35.1 % (35.3-44.9) L 09/27/16 05:38 RDW 15.0 % (11.5-14.5) H 09/24/16 06:07 BUN 4 mg/dL (7-20) L 09/27/16 05:38 Urine Opiates Screen Positive ng/mL (Zqnmbq=708) H 09/23/16 17:40 Ur Amphetamines Screen Positive ng/mL (Vvspmg=9950) H 09/23/16 17:40 U Marijuana (THC) Screen Positive ng/mL (Cutoff = 50) H 09/23/16 17:40 - VTE Documentation of Mechanical Device: Venous foot pump, device Consult Discharge Plan - Plan Referrals: Johny Greene MD [Primary Care Provider] -
[2016-09-27] MEDS ORDERED: *HR* HYDROmorphone 2 MG/ML SYRINGE IVP PRN (11:45)
--- NOTE | 2016-09-27 17:21 | Internal Med Progress Note ---
Date of Encounter: 09/27/16 Time of Encounter: 17:19 - Assessment and plan (1) Tibial plateau fracture, left Current Visit: Yes Status: Acute Assessment and plan: Management per ortho stable post op. control pain bedside PT/OT patient to go to rehab, social work on board, await approval Qualifiers: Encounter type: initial encounter Fracture type: closed Qualified Code(s) : S82.142A - Displaced bicondylar fracture of left tibia, initial encounter for closed fracture (2) Fibula fracture Current Visit: Yes Status: Acute Assessment and plan: Continue pain control POD#2 DVT prophylaxis Qualifiers: Encounter type: initial encounter Fibula location: proximal Fracture type : closed Laterality: left Qualified Code(s): S82.832A - Other fracture of upper and lower end of left fibula, initial encounter for closed fracture (3) Ulna styloid fracture, closed Current Visit: Yes Status: Acute Assessment and plan: Continue pain control POD 3 Mgt per ortho Qualifiers: Encounter type: initial encounter Fracture alignment: nondisplaced Laterality: right Qualified Code(s): S52.614A - Nondisplaced fracture of right ulna styloid process, initial encounter for closed fracture (4) HTN (hypertension) Current Visit: Yes Status: Suspected Assessment and plan: BP controlled Continue Norvasc 2.5mg daily, titrate prn Qualifiers: Hypertension type: essential hypertension Qualified Code(s): I10 - Essential (primary) hypertension - Subjective Interval history: s/p R ulnar styloid ORIF and left tibial plateau fracture repair. getting IV dilaudid with percocet for severe pain, denies any other complains patinet wanting to go to rehab, social work consulted post op care being managed by ortho - Constitutional Vitals: Temp Pulse Resp BP Pulse Ox 98.3 F 91 16 147/86 99 09/27/16 14:00 09/27/16 14:00 09/27/16 14:00 09/27/16 14:00 09/27/16 14:00 General appearance: Present: A&O X 3, pleasant, no acute distress Exam: - Head Head exam: Present: atraumatic, normocephalic - Eye Eye exam: Present: PERRL, conjuntiva pink, sclera anicteric Pupils: Present: PERRL - Neck Neck exam general surgery: Present: supple, trachea midline. Absent: lymphadenopathy - Respiratory Respiratory exam: Present: CTAB. Absent: accessory muscle use, rales, rhonchi, wheezes - Cardiovascular Cardiovascular exam: Present: RRR, +S1, +S2. Absent: diastolic murmur, gallop, rubs, systolic murmur - GI/Abdominal GI/Abdominal exam: Present: normal bowel sounds, soft, no peritoneal signs. Absent: distended, tenderness - Extremities Exam Extremities exam: Present: warm, radial pulses palpable and symetrical. Absent : calf tenderness, cyanotic, pedal edema Additional comments: R hand arm in cast, neurovcularly intact, L leg in cast, neurovascularly intact - Neurological Exam Neurological exam: Present: alert, CN II-XII intact, oriented X3, no focal deficits. Absent: pronater drift, facial droop, speech deficit - Skin Skin exam: Present: dry, intact Internal Medicine: Result - Labs CBC & Chem 7: 09/27/16 05:38 09/27/16 05:38 Labs: Short CBC 09/27/16 Range/Units 05:38 Hgb 11.4 L (11.5-15.4) g/dL Hct 35.1 L (35.3-44.9) % BMP 09/27/16 05:38 Sodium 142 Potassium 4.0 Chloride 105 Carbon Dioxide 28 BUN 4 L Creatinine 0.64 Glucose 95 Calcium 9.4 - VTE Documentation of Mechanical Device: Venous foot pump, device Consult Discharge Plan - Plan Referrals: Johny Greene MD [Primary Care Provider] -
[2016-09-27] MEDS: Acetaminophen 325 MG TABLET PO PRN (21:19)
[2016-09-28] MEDS: *HR* OxyCODONE Immed Rel 5 MG TABLET PO PRN ×4 (01:06→14:33)
[2016-09-28] MEDS: Acetaminophen 325 MG TABLET PO PRN (03:23)
[2016-09-28] MEDS: *HR* HYDROmorphone 2 MG/ML SYRINGE IVP PRN ×2 (06:09→12:27)
[2016-09-28] MEDS: amLODIPine 5 MG TABLET PO SCH (09:02)
[2016-09-28 11:36] VITALS: BP 142/88
--- NOTE | 2016-09-28 13:13 | Discharge Summary ---
Date of Encounter: 09/29/16 Time of Encounter: 13:03 - Discharge Diagnosis (1) Tibial plateau fracture, left Priority: Primary Status: Acute Qualifiers: Encounter type: initial encounter Fracture type: closed Qualified Code(s) : S82.142A - Displaced bicondylar fracture of left tibia, initial encounter for closed fracture (2) Fibula fracture Priority: Primary Status: Acute Qualifiers: Encounter type: initial encounter Fibula location: proximal Fracture type : closed Fracture morphology: unspecified fracture morphology Laterality: left Qualified Code(s): S82.832A - Other fracture of upper and lower end of left fibula, initial encounter for closed fracture (3) Ulna styloid fracture, closed Priority: Primary Status: Acute Qualifiers: Encounter type: initial encounter Fracture alignment: nondisplaced Laterality: right Qualified Code(s): S52.614A - Nondisplaced fracture of right ulna styloid process, initial encounter for closed fracture (4) HTN (hypertension) Priority: Secondary Status: Suspected Qualifiers: Hypertension type: essential hypertension Qualified Code(s): I10 - Essential (primary) hypertension - Discharge Medications Prescriptions: amLODIPine [Norvasc] 2.5 mg PO DAILY #30 tablet Docusate [Colace] 100 mg PO BID #60 capsule HYDROcodone/Acet 7.5/325 mg [[place] 7.5-325 mg] 1 tab PO Q6H PRN #60 tablet PRN Reason: Pain Home Medications: Docusate [Colace] 100 mg PO BID #60 capsule 09/28/16 [Rx] HYDROcodone/Acet 7.5/325 mg [[place] 7.5-325 mg] 1 tab PO Q6H PRN #60 tablet 09/28 [Rx] amLODIPine [Norvasc] 2.5 mg PO DAILY #30 tablet 09/28/16 [Rx] Allergies/Adverse Reactions: Allergies No Known Allergies Allergy (Verified 09/23/16 07:24) Date of admission: 09/25/16 08:59 Primary care physician: Johny Greene MD Consults: 09/25/16 20:51 Consult to Occupational Therapy [CONS] Routine Comment: Evaluate, develop and implement POC Reason for Consult: post knee surgery Consult to Orthopedic Navigator [CONS] [CONS] Routine Consult to Physical Therapy [CONS] Routine Comment: Evaluate, develop and impliment POC Reason for Consult: post knee surgery, platform walker, nwb lle Consult to Rack Washer [CONS] Routine Reason for SW Consult: post op joint replacement RT Post Op Consult [CONS] Routine Discharging clinician: Castillo Saldana Anticipated date of discharge: 09/28/16 - Patient Status Disposition: Transfer Inpatient Rehab Fac Condition: Fair Functional capacity at discharge: uses cane/walker Overall status at discharge: patient is progressing back to baseline - Discharge Instructions Follow Up With: Johny Greene MD [Primary Care Provider] - - Diet and Activity Activity: as per physical therapy Diet: advance to your usual diet Interval History: Ms. Benedict is a 40 year old female with no past medical history except for crepitus. Patient reports having the porch about 10 feet high without railings, and she fell from the edge of touched the flow last night at 10 PM. She denies being under the influence of drugs or alcohol at the time of the incident. She denies any formal domestic violence or abuse at home. She presented to the ER at [facility], and imaging revealed a right communited / impacted ulnar styloid fracture and a left tibia and fibula fracture hence patient was transferred here for surgical intervention. ortho was consulted and she underwent Right wrist open reduction internal fixation of distal radius adn Open reduction internal fixation left tibial plateau bicondylar. post op care was managed by ortho and she did welll, bedside PT/OT was consulted. she is being dc today to [facility] in stable condition. Hospital course: Ms. Benedict is a 40 year old female Time spent discussing smoking cessation with patient: more than 10 minutes - Time Spent with Patient Total time spent providing and/or coordinating discharge services: Greater than 30 minutes - Constitutional Vitals: Temp Pulse Resp BP Pulse Ox 98.4 F 95 14 142/88 98 09/28/16 11:34 09/28/16 11:34 09/28/16 11:34 09/28/16 11:34 09/28/16 11:34 General appearance: Present: A&O X 3, pleasant, no acute distress Exam: - Head Head exam: Present: atraumatic, normocephalic - Eye Eye exam: Present: PERRL, conjuntiva pink, sclera anicteric Pupils: Present: PERRL - Neck Neck exam general surgery: Present: supple, trachea midline. Absent: lymphadenopathy - Respiratory Respiratory exam: Present: CTAB. Absent: accessory muscle use, rales, rhonchi, wheezes - Cardiovascular Cardiovascular exam: Present: RRR, +S1, +S2. Absent: diastolic murmur, gallop, rubs, systolic murmur - GI/Abdominal GI/Abdominal exam: Present: normal bowel sounds, soft, no peritoneal signs. Absent: distended, tenderness - Extremities Exam Extremities exam: Present: warm, radial pulses palpable and symetrical. Absent : calf tenderness, cyanotic, pedal edema Additional comments: R hand arm in cast, neurovcularly intact, L leg in cast, neurovascularly intact - Neurological Exam Neurological exam: Present: alert, CN II-XII intact, oriented X3, no focal deficits. Absent: pronater drift, facial droop, speech deficit - Skin Skin exam: Present: dry, intact - VTE Documentation of Mechanical Device: Venous foot pump, device
--- NOTE | 2016-09-28 15:08 | Physician Discharge Referral ---
ExtendedCare Referral Info Transfer To: [facility] Provider in Charge: ehsan deshpande Institutional Level of Care: Intermediate - MR - Diagnosis (1) Tibial plateau fracture, left Status: Acute (2) Fibula fracture Status: Acute (3) Ulna styloid fracture, closed Status: Acute (4) HTN (hypertension) Status: Suspected - Transfer Medications Prescriptions: amLODIPine [Norvasc] 2.5 mg PO DAILY #30 tablet Docusate [Colace] 100 mg PO BID #60 capsule HYDROcodone/Acet 7.5/325 mg [[place] 7.5-325 mg] 1 tab PO Q6H PRN #60 tablet PRN Reason: Pain Home Medications: Docusate [Colace] 100 mg PO BID #60 capsule 09/28/16 [Rx] HYDROcodone/Acet 7.5/325 mg [[place] 7.5-325 mg] 1 tab PO Q6H PRN #60 tablet 09/28 [Rx] amLODIPine [Norvasc] 2.5 mg PO DAILY #30 tablet 09/28/16 [Rx] Allergies/Adverse Reactions: Allergies No Known Allergies Allergy (Verified 09/23/16 07:24) - Respiratory Orders Smoking Cessation: Smoking cessation has been advised. For more information, call the [place] Tobacco Quit Line at 2-664-XSHP-NOW. - Advance Directives Code Status: Full Code - Mobility Orders Ambulate - Rehabiliation Orders Rehab Orders: Evaluation for Physical Therapy, Evaluation for Occupational Therapy - Diet Orders Regular CERTIFICATION: I certify that the transfer of the above named patient to an Extended Care Facility is necessary for the continuing treatment of the diagnosis listed. The above information is true and accurate reflection of patient's current condition. Confidential - Redisclosure prohibited without a patient's written consent.
== END 2016-09-28 16:32 | DRG 313 ==
LOC: 3NENU
PROVIDERS: ADMIT Internal Medicine; ATTEND Internal Medicine Endocrinology, Diabetes & Metabolism

== ENCOUNTER 2019-12-11 17:00 | Observation (INO) ==
[2019-12-11] MEDS ORDERED: Naloxone 0.4 MG/ML INJ IVP PRN (19:51)
[2019-12-11] MEDS ORDERED: 0.9 % Sodium Chloride 1,000 ML IVC ONE (21:53)
[2019-12-12 04:35] LABS: Hematocrit 34.2 % (35.3-44.9); Hemoglobin 11.2 g/dL (11.5-15.4); Mean Corpuscular HGB Conc 32.7 g/dL (31.6-35.5); Mean Corpuscular Hemoglobin 28.9 pg (28.0-33.3); Mean Corpuscular Volume 88.1 fL (83.0-100.0); Platelet Count 354 K/mcL (140-400); Red Blood Count 3.88 M/mcL (3.82-4.97); White Blood Count 8.4 K/mcL (4.3-11.1)
[2019-12-12 05:00] LABS: BUN/Creatinine Ratio 15 (6-26); Blood Urea Nitrogen 8 mg/dL (6-20); Calcium 8.6 mg/dL (8.6-10.3); Carbon Dioxide 22 mEq/L (23-29); Chloride 107 mEq/L (98-107); Glucose 77 mg/dL (70-105); Magnesium 1.4 mg/dL (1.6-2.6); Osmolality,Calculated 285 (280-300); Phosphorous 3.3 mg/dL (2.7-4.5); Potassium 3.3 mEq/L (3.5-5.1); Sodium 139 mEq/L (136-145); eGFR For African Americans > 60 (> 60); eGFR For Non-African Americans > 60 (> 60)
[2019-12-12] MEDS ORDERED: Ketorolac 30 MG/ML VIAL IVP ONE (08:52)
[2019-12-12] MEDS ORDERED: Ondansetron 4 MG/2 ML VIAL IVP ONE (08:52)
[2019-12-12] MEDS ORDERED: Potassium Chloride 20 MEQ, Lidocaine 1% 2 ML in 0.9 % Sodium Chloride 250 ML IVPB ONE ×2 (08:54→10:59)
[2019-12-12] MEDS ORDERED: cefTRIAXone 1,000 MG in Water for inj. (sterile) 10 ML IVP SCH (09:00)
[2019-12-12] MEDS ORDERED: Ringers Solution, Lactated 1,000 ML IVC SCH (09:00)
[2019-12-12] MEDS ORDERED: Dexamethasone 4 MG/ML VIAL ONE (09:40)
[2019-12-12] MEDS ORDERED: *HR* Propofol 200 MG/20 ML VIAL IVP ONE (09:40)
[2019-12-12] MEDS ORDERED: Lidocaine -MPF 2% 2 ML VIAL ONE (09:40)
[2019-12-12] MEDS ORDERED: *HR* Midazolam HCl 2 MG/2 ML VIAL ONE (09:40)
[2019-12-12] MEDS ORDERED: *HR* FentaNYL (PF) 100 MCG/2 ML VIAL ONE (09:40)
[2019-12-12] MEDS ORDERED: Ondansetron 4 MG/2 ML VIAL ONE (09:40)
[2019-12-12] MEDS ORDERED: Naloxone 0.4 MG/ML INJ IVP PRN (10:59)
[2019-12-12 12:39] VITALS: BP 127/83
[2019-12-12] MEDS ORDERED: hydrOXYzine pamoate 25 MG CAPSULE PO SCH ×2 (21:00)
[2019-12-13] MEDS ORDERED: cefTRIAXone 1,000 MG in Water for inj. (sterile) 10 ML IVP SCH (09:00)
== END 2019-12-12 13:11 | disposition home or self-care (01) ==
LOC: 3BNU → SUATTDRO 19:05
PROVIDERS: ADMIT Internal Medicine; ATTEND Internal Medicine